=== PATIENT | female | born 1965 | race Caucasian/White ===

== ENCOUNTER → 2017-04-29 | Outpatient (CLI) | payer BC ==
[2017-04-29 12:27] LABS: Basophils # (auto) 0 uL; Basophils % (auto) 0.2 % (0.0-2.0); CONDITION Y; Eosinophils # (auto) 0.4 uL; Eosinophils % (auto) 4.8 % (0.0-7.0); Hematocrit 37.4 % (36.0-46.0); Hemoglobin 12.6 g/dL (12.2-16.2); Lymphocytes # (auto) 1.8 uL; Lymphocytes % (auto) 23.2 % (10.0-50.0); Mean Corpuscular Hemoglobin 27.3 pg (28.0-32.0); Mean Corpuscular Hgb Conc. 33.6 g/dL (32.0-36.0); Mean Corpuscular Volume 81.2 fL (80.0-100.0); Mean Platelet Volume 8.1 fL (7.4-10.4); Monocytes # (auto) 0.3 uL; Neutrophils # (auto) 5.2 uL; Neutrophils % (auto) 67.8 % (37.0-80.0); Platelet Count (auto) 173 10^3/uL (140-450); White Blood Cell 7.7 10^3/uL (4.4-10.8)
[2017-04-29 13:06] LABS: Albumin 3.4 g/dL (3.4-5.0); BUN/Creatinine Ratio 22.6; Bilirubin, Total 0.4 mg/dL (0.2-1.0); Calcium 9.1 mg/dL (8.5-10.1); Total Protein 8.6 g/dL (6.4-8.2)
== END | disposition home or self-care (01) ==
LOC: LAB 11:33
PROVIDERS: ATTEND Internal Medicine
DX: Z12.11 Encounter for screening for malignant neoplasm of colon (principal); I10 Essential (primary) hypertension; B18.2 Chronic viral hepatitis C; E11.42 Type 2 diabetes mellitus with diabetic polyneuropathy; E55.9 Vitamin D deficiency, unspecified; R74.9 Abnormal serum enzyme level, unspecified
CPT/HCPCS: 36415; 80053; 80061; 82043; 82306; 83036; 84443; 85025

== ENCOUNTER → 2017-08-01 | Day surgery (SDC) | payer BC ==
[2017-07-29 12:48] LABS: Basophils # (auto) 0.1 uL; Basophils % (auto) 0.5 % (0.0-2.0); Eosinophils # (auto) 0.5 uL; Eosinophils % (auto) 4.7 % (0.0-7.0); Hematocrit 35.8 % (36.0-46.0); Lymphocytes # (auto) 2.8 uL; Lymphocytes % (auto) 24.5 % (10.0-50.0); Mean Corpuscular Hemoglobin 27.4 pg (28.0-32.0); Mean Corpuscular Hgb Conc. 33.6 g/dL (32.0-36.0); Mean Corpuscular Volume 81.5 fL (80.0-100.0); Mean Platelet Volume 8.1 fL (6.9-10.8); Monocytes # (auto) 0.6 uL; Monocytes % (auto) 4.8 % (0.0-12.0); Neutrophils # (auto) 7.6 uL; Neutrophils % (auto) 65.5 % (37.0-80.0); Platelet Count (auto) 133 10^3/uL (140-450); Red Cell Distribution Width 15.5 % (11.8-14.3); White Blood Cell 11.6 10^3/uL (4.4-10.8)
[2017-07-29 13:12] LABS: INR 0.99 (0.9-1.15); Partial Thromboplastin Time 26.1 sec (22.64-33.71); Prothrombin Time 10.8 sec (9.37-12.3)
[~2017-08-01] VITALS: Ht 170.2 cm; Wt 99.8 kg
[~2017-08-01] MED LIST: ASPI81TA27 PO; BENA40TA7 PO; CARB200T PO; CHOL500023 PO; INSU70IN3 SC; LIDOCAINE VISCOUS 2% 15ML UD ONE; PANT40TA2 PO; PRO20T OR; SODIUM CHLORIDE LOCK 10 ML ONE; diphenhdrAMINE HCL 50 MG/1 ML VL ONE
[2017-08-01] MEDS: fentaNYL CITRATE 100 MCG/2 ML VL ONE ×3 (08:49→09:07)
[2017-08-01] MEDS: MIDAZOLAM HCL 5 MG/ML-1ML VIAL ONE ×3 (08:49→09:07)
[2017-08-01 09:57] VITALS: BP 143/75
== END | disposition home or self-care (01) ==
LOC: GI 07:14
PROVIDERS: ATTEND Internal Medicine Gastroenterology
DX: Z12.11 Encounter for screening for malignant neoplasm of colon (principal); K64.8 Other hemorrhoids; I85.00 Esophageal varices without bleeding; K29.50 Unspecified chronic gastritis without bleeding; D64.9 Anemia, unspecified; E66.9 Obesity, unspecified; Z68.34 Body mass index [BMI] 34.0-34.9, adult; E11.9 Type 2 diabetes mellitus without complications; Z90.49 Acquired absence of other specified parts of digestive tract
CPT/HCPCS: 36415; 43244; 45378; 82962; 85025; 85610; 85730; J2250; J3010; J7030; 99152

== ENCOUNTER → 2017-08-11 | Outpatient (CLI) | payer BC ==
[~2017-08-11] MED LIST changes: -LIDOCAINE VISCOUS 2% 15ML UD ONE; -SODIUM CHLORIDE LOCK 10 ML ONE; -diphenhdrAMINE HCL 50 MG/1 ML VL ONE
[2017-08-11 15:29] LABS: INR 0.99 (0.9-1.15); Prothrombin Time 10.8 sec (9.37-12.3)
[2017-08-11 15:39] LABS: Basophils # (auto) 0 uL; Basophils % (auto) 0.4 % (0.0-2.0); Eosinophils # (auto) 0.3 uL; Eosinophils % (auto) 2.6 % (0.0-7.0); Hematocrit 33.9 % (36.0-46.0); Hemoglobin 11.2 g/dL (12.2-16.2); Lymphocytes # (auto) 1.7 uL; Lymphocytes % (auto) 15.3 % (10.0-50.0); Mean Corpuscular Hemoglobin 27.6 pg (28.0-32.0); Mean Corpuscular Hgb Conc. 33.2 g/dL (32.0-36.0); Mean Corpuscular Volume 83.1 fL (80.0-100.0); Mean Platelet Volume 8.3 fL (6.9-10.8); Monocytes # (auto) 0.5 uL; Monocytes % (auto) 4.5 % (0.0-12.0); Neutrophils # (auto) 8.8 uL; Neutrophils % (auto) 77.2 % (37.0-80.0); Nucleated Red Blood Cells % 0.3 %; Platelet Count (auto) 113 10^3/uL (140-450); Red Cell Distribution Width 16.2 % (11.8-14.3); White Blood Cell 11.3 10^3/uL (4.4-10.8)
[2017-08-11 15:52] LABS: Albumin 3.1 g/dL (3.4-5.0); BUN/Creatinine Ratio 15.9; Bilirubin, Total 0.4 mg/dL (0.2-1.0); Calcium 8.1 mg/dL (8.5-10.1); Potassium 4.2 mmol/L (3.5-5.1)
== END | disposition home or self-care (01) ==
LOC: LAB 14:54
PROVIDERS: ATTEND Internal Medicine Gastroenterology
DX: Z01.812 Encounter for preprocedural laboratory examination (principal); K74.60 Unspecified cirrhosis of liver; Z86.19 Personal history of other infectious and parasitic diseases
CPT/HCPCS: 36415; 80053; 82105; 85025; 85610

== ENCOUNTER 2017-09-23 09:36 | Day surgery (SDC) | payer BC ==
[2017-09-19 16:46] LABS: INR 0.96 (0.9-1.15); Partial Thromboplastin Time 26.4 sec (22.64-33.71); Prothrombin Time 10.5 sec (9.37-12.3)
[2017-09-19 17:04] LABS: Basophils # (auto) 0 uL; Hemoglobin 10.7 g/dL (12.2-16.2); Lymphocytes # (auto) 1.4 uL; Monocytes # (auto) 0.3 uL; Nucleated Red Blood Cells % 0.1 %
[2017-09-19 17:07] LABS: Basophils % (auto) 0.6 % (0.0-2.0); Eosinophils # (auto) 0.4 uL; Eosinophils % (auto) 6.2 % (0.0-7.0); Hematocrit 32.3 % (36.0-46.0); Lymphocytes % (auto) 24.5 % (10.0-50.0); Mean Corpuscular Volume 81.7 fL (80.0-100.0); Monocytes % (auto) 5.5 % (0.0-12.0); Neutrophils # (auto) 3.7 uL; Neutrophils % (auto) 63.2 % (37.0-80.0); Platelet Count (auto) 106 10^3/uL (140-450); Red Blood Cells 3.95 10^6/uL (4.0-5.20); Red Cell Distribution Width 15.5 % (11.8-14.3); White Blood Cell 5.8 10^3/uL (4.4-10.8)
[~2017-09-23] VITALS: Ht 170.2 cm; Wt 102.1 kg
[~2017-09-23 09:36] MED LIST changes: +INSLISPI SC
[2017-09-23] MEDS ORDERED: fentaNYL CITRATE 100 MCG/2 ML VL ONE (10:09)
[2017-09-23] MEDS ORDERED: SODIUM CHLORIDE LOCK 10 ML ONE (10:09)
[2017-09-23] MEDS ORDERED: LIDOCAINE VISCOUS 2% 15ML UD ONE (10:09)
[2017-09-23] MEDS ORDERED: diphenhdrAMINE HCL 50 MG/1 ML VL ONE (10:10)
[2017-09-23] MEDS ORDERED: MIDAZOLAM HCL 5 MG/ML-1ML VIAL ONE (10:10)
[2017-09-23] MEDS: hydrALAZINE HCL 20 MG/ML VL ONE ×2 (11:11→11:24)
[2017-09-23 11:34] VITALS: BP 168/78
[2017-09-23] MEDS ORDERED: hydrALAZINE HCL 20 MG/ML VL IV ONE (15:00)
== END 2017-09-23 11:38 | disposition home or self-care (01) ==
LOC: GI 09:36
PROVIDERS: ATTEND Internal Medicine Gastroenterology
DX: I85.00 Esophageal varices without bleeding (principal); K76.6 Portal hypertension; K31.89 Other diseases of stomach and duodenum; E66.9 Obesity, unspecified; Z68.35 Body mass index [BMI] 35.0-35.9, adult; E11.9 Type 2 diabetes mellitus without complications; Z90.49 Acquired absence of other specified parts of digestive tract
CPT/HCPCS: 36415; 43244; 82962; 85025; 85610; 85730; J0360; J1200; J2250; J3010; 99152

== ENCOUNTER → 2017-09-27 | Outpatient (CLI) | payer BC ==
[2017-09-27 13:45] LABS: Albumin 3.1 g/dL (3.4-5.0); BUN/Creatinine Ratio 11.3; Bilirubin, Total 0.4 mg/dL (0.2-1.0); Calcium 8.7 mg/dL (8.5-10.1); Potassium 3.8 mmol/L (3.5-5.1); Total Protein 8.7 g/dL (6.4-8.2)
== END | disposition home or self-care (01) ==
LOC: LAB 11:37
PROVIDERS: ATTEND Internal Medicine
DX: E11.39 Type 2 diabetes mellitus with other diabetic ophthalmic complication (principal); E78.5 Hyperlipidemia, unspecified
CPT/HCPCS: 36415; 80053; 80061; 83036

== ENCOUNTER 2017-10-31 08:28 | Day surgery (SDC) | payer BC ==
[2017-10-28 12:21] LABS: Basophils # (auto) 0 uL; Eosinophils # (auto) 0.4 uL; Hematocrit 31.6 % (36.0-46.0); Hemoglobin 10.5 g/dL (12.2-16.2); Mean Corpuscular Hemoglobin 26.1 pg (28.0-32.0); Mean Corpuscular Hgb Conc. 33.2 g/dL (32.0-36.0); Monocytes # (auto) 0.5 uL; Neutrophils # (auto) 5.5 uL; Red Blood Cells 4.02 10^6/uL (4.0-5.20); Red Cell Distribution Width 15.5 % (11.8-14.3)
[2017-10-28 12:23] LABS: Basophils % (auto) 0.4 % (0.0-2.0); Eosinophils % (auto) 5.4 % (0.0-7.0); Lymphocytes # (auto) 1.7 uL; Lymphocytes % (auto) 20.9 % (10.0-50.0); Mean Corpuscular Volume 78.6 fL (80.0-100.0); Monocytes % (auto) 6.1 % (0.0-12.0); Neutrophils % (auto) 67.2 % (37.0-80.0); Platelet Count (auto) 111 10^3/uL (140-450); White Blood Cell 8.1 10^3/uL (4.4-10.8)
[2017-10-28 12:35] LABS: Prothrombin Time 10.9 sec (9.37-12.3)
[~2017-10-31] VITALS: Ht 170.2 cm; Wt 98.9 kg
[~2017-10-31 08:28] MED LIST changes: -ASPI81TA27 PO; +SODIUM CHLORIDE LOCK 10 ML ONE
[2017-10-31] MEDS ORDERED: LIDOCAINE VISCOUS 2% 15ML UD ONE (08:30)
[2017-10-31] MEDS ORDERED: diphenhdrAMINE HCL 50 MG/1 ML VL ONE (08:31)
[2017-10-31] MEDS: fentaNYL CITRATE 100 MCG/2 ML VL ONE ×2 (09:37→09:40)
[2017-10-31] MEDS: MIDAZOLAM HCL 5 MG/ML-1ML VIAL ONE ×2 (09:37→09:40)
[2017-10-31 10:22] VITALS: BP 164/86
== END 2017-10-31 10:35 | disposition home or self-care (01) ==
LOC: GI 08:28
PROVIDERS: ATTEND Internal Medicine Gastroenterology
DX: I85.10 Secondary esophageal varices without bleeding (principal); K74.60 Unspecified cirrhosis of liver; T18.2XXA Foreign body in stomach, initial encounter; K76.6 Portal hypertension; K31.89 Other diseases of stomach and duodenum; E66.9 Obesity, unspecified; Z68.34 Body mass index [BMI] 34.0-34.9, adult; E11.9 Type 2 diabetes mellitus without complications
CPT/HCPCS: 36415; 43244; 82962; 85025; 85610; J1200; J2250; J3010; 99152

== ENCOUNTER → 2017-12-05 | Day surgery (SDC) | payer BC ==
[2017-12-02 09:59] LABS: Eosinophils # (auto) 0.3 uL; Hemoglobin 10.4 g/dL (12.2-16.2); Mean Corpuscular Volume 77.4 fL (80.0-100.0); Monocytes # (auto) 0.5 uL; Monocytes % (auto) 5.5 % (0.0-12.0); Red Cell Distribution Width 16.4 % (11.8-14.3)
[2017-12-02 10:00] LABS: Basophils # (auto) 0 uL; Basophils % (auto) 0.5 % (0.0-2.0); Eosinophils % (auto) 3.4 % (0.0-7.0); Hematocrit 31.9 % (36.0-46.0); Lymphocytes # (auto) 1.7 uL; Lymphocytes % (auto) 19.6 % (10.0-50.0); Mean Corpuscular Hemoglobin 25.2 pg (28.0-32.0); Mean Corpuscular Hgb Conc. 32.6 g/dL (32.0-36.0); Neutrophils # (auto) 6.2 uL; Platelet Count (auto) 127 10^3/uL (140-450); Red Blood Cells 4.12 10^6/uL (4.0-5.20); White Blood Cell 8.7 10^3/uL (4.4-10.8)
[2017-12-02 10:20] LABS: INR 0.98 (0.9-1.15); Partial Thromboplastin Time 25.7 sec (22.64-33.71); Prothrombin Time 10.7 sec (9.37-12.3)
[~2017-12-05] VITALS: Ht 170.2 cm; Wt 105.7 kg
[~2017-12-05] MED LIST changes: +LIDOCAINE VISCOUS 2% 15ML UD ONE; -SODIUM CHLORIDE LOCK 10 ML ONE; +diphenhdrAMINE HCL 50 MG/1 ML VL ONE
[2017-12-05] MEDS: MIDAZOLAM HCL 5 MG/ML-1ML VIAL ONE ×2 (11:57→12:00)
[2017-12-05] MEDS: fentaNYL CITRATE 100 MCG/2 ML VL ONE ×2 (11:57→12:00)
[2017-12-05 12:45] VITALS: BP 173/88
== END | disposition home or self-care (01) ==
LOC: GI 09:16
PROVIDERS: ATTEND Internal Medicine Gastroenterology
DX: K74.60 Unspecified cirrhosis of liver (principal); I85.10 Secondary esophageal varices without bleeding; K29.50 Unspecified chronic gastritis without bleeding; K76.6 Portal hypertension; K31.89 Other diseases of stomach and duodenum; E66.9 Obesity, unspecified; Z68.36 Body mass index [BMI] 36.0-36.9, adult; J45.909 Unspecified asthma, uncomplicated; E11.9 Type 2 diabetes mellitus without complications; Z90.49 Acquired absence of other specified parts of digestive tract; I10 Essential (primary) hypertension
CPT/HCPCS: 36415; 43244; 82962; 85025; 85610; 85730; J1200; J2250; J3010; J7030; 99152

== ENCOUNTER → 2017-12-21 | Outpatient (CLI) | payer BC ==
[~2017-12-21] MED LIST changes: -LIDOCAINE VISCOUS 2% 15ML UD ONE; -diphenhdrAMINE HCL 50 MG/1 ML VL ONE
[2017-12-21 12:10] LABS: Albumin 2.9 g/dL (3.4-5.0); BUN/Creatinine Ratio 9.1; Calcium 8.8 mg/dL (8.5-10.1)
[2017-12-21 12:13] LABS: Bilirubin, Total 0.3 mg/dL (0.2-1.0); Total Protein 7.9 g/dL (6.4-8.2)
== END | disposition home or self-care (01) ==
LOC: LAB 10:46
PROVIDERS: ATTEND Internal Medicine
DX: E11.3519 Type 2 diabetes mellitus with proliferative diabetic retinopathy with macular edema, unspecified eye (principal); E78.5 Hyperlipidemia, unspecified
CPT/HCPCS: 36415; 80053; 83036

== ENCOUNTER → 2018-04-18 | Outpatient (CLI) | payer BC | END | disposition home or self-care (01) | LOC: XY 08:05 | PROVIDERS: ATTEND Internal Medicine Gastroenterology | DX: K30 Functional dyspepsia (principal); R68.81 Early satiety; R11.2 Nausea with vomiting, unspecified | CPT/HCPCS: 78264; A9541 ==